=== PATIENT | male | born 1945 | race Caucasian/White ===

== ENCOUNTER 2017-11-13 19:43 | Inpatient (IN) | payer MEDICARE, BC ==
[~2017-11-13] VITALS: Ht 177.8 cm; Wt 88.0 kg
[2017-11-13] MEDS: ACETAMINOPHEN 325 MG TAB PO PRN ×2 (10:30→22:31)
[2017-11-13 19:30] VITALS: BP 165/101
[2017-11-13 19:40] VITALS: BP 165/101
[~2017-11-13 19:43] MED LIST: OXYBUTYNIN CHLOR5 MG PO; ULTRAM50 MG PO
[2017-11-13 21:25] VITALS: BP 165/101
[2017-11-13] MEDS ORDERED: GABAPENTIN400 MG PO (23:00)
[2017-11-14] VITALS (8 sets, daily range): BP systolic 126–160; BP diastolic 82–96
[2017-11-14] MEDS: ACETAMINOPHEN 325 MG TAB PO PRN (05:36)
[2017-11-14 10:17] LABS: BASOPHILS % 0.1 % (0.0-1.0); EOSINOPHILS % 0.3 % (0.0-6.0); HEMATOCRIT 44.4 % (38.2-49.6); LYMPHOCYTES # (AUTO) 1.8 (1.0-3.2); LYMPHOCYTES % 20.4 % (18.0-39.1); MEAN CORPUSCULAR HEMOGLOBIN 30.3 pg (28-32); MEAN CORPUSCULAR HGB CONC 33.8 g/dL (31-35); MEAN CORPUSCULAR VOLUME 89.7 fL (81-99); MONOCYTES # (AUTO) 0.7 (0.2-0.8); MONOCYTES % 8.3 % (4.4-11.3); NEUTROPHILS # (AUTO) 5.3 (2.1-6.9); NEUTROPHILS % 61.6 % (38.7-80.0); PLATELET COUNT 202 x10e3/uL (140-360); RED BLOOD COUNT 4.95 x10e6/uL (4.3-5.7); RED CELL DISTRIBUTION WIDTH 14.6 % (11.7-14.4)
[2017-11-14 10:37] LABS: ALANINE AMINOTRANSFERASE 52 IU/L (0-55); ALBUMIN 2.4 g/dL (3.5-5.0); ALBUMIN/GLOBULIN RATIO 0.7 (0.8-2.0); ALKALINE PHOSPHATASE 79 IU/L (40-150); ANION GAP 14.2 mmol/L (8-16); BLOOD UREA NITROGEN 24 mg/dL (7-26); BUN/CREATININE RATIO 25 (6-25); CALCIUM 9.7 mg/dL (8.4-10.2); CARBON DIOXIDE 24 mmol/L (22-29); CHLORIDE 105 mmol/L (98-107); CREATININE, SERUM 0.97 mg/dL (0.72-1.25); EST GLOMERULAR FILTRATION RATE > 60 ML/MIN (60-); GLUCOSE 93 mg/dL (74-118); POTASSIUM 4.2 mmol/L (3.5-5.1); SODIUM 139 mmol/L (136-145)
[2017-11-14] MEDS ORDERED: DEXTROSE 5%/0.9% SOD CHL 1,000 ML IV ONE (10:45)
--- NOTE | 2017-11-14 11:08 | History and Physical ---
CHIEF COMPLAINT: Cough and chest congestion, as well as body aches. HISTORY OF PRESENT ILLNESS: This is a 72-year-old white man who has no significant past medical history other than benign prostatic hypertrophy. The patient presents to [facility] emergency room with a 1-week history of worsening cough and chest congestion, as well as body aches. The patient was actually diagnosed with influenza at a local emergency room on Thursday, November 09, 2017. The patient states it is still having cough and chest congestion. He also complains of body aches, as well as headaches. The patient states that he completed 4 days oral Tamiflu at home prior to his admission. In the emergency room, the patient had a chest x-ray done on this admission, which revealed findings consistent with left lower lobe pneumonia. The patient was admitted for further evaluation and treatment. REVIEW OF SYSTEMS GENERAL: The patient had fever and chills last week, as well as diffuse myalgias. Denies any weight change. HEENT: Complains of headaches. Denies any visual changes. The patient also denies any neck stiffness. CARDIOVASCULAR/RESPIRATORY: Complains of chest congestion and productive cough over the last week, as well as slight shortness of breath. Denies any chest pain or tightness. GI: Complains of nausea, but no vomiting. Denies any diarrhea. : He does have BPH symptoms, but they are well controlled with medications. The patient denies any UTI symptoms. NEUROMUSCULAR: Complains of diffuse body aches. Denies any focal limb weakness or numbness. ALLERGIES: NO KNOWN DRUG ALLERGIES. MEDICATIONS 1. Vitamin B12 1000 mcg once daily. 2. Tamsulosin 0.8 mg at bedtime. PAST MEDICAL HISTORY 1. Alcoholic polyneuropathy. 2. History of chronic alcoholism (abstinence sine 2008). 3. Benign prostatic hypertrophy with lower urinary tract symptoms. 4. Lumbar disease. 5. Hyperlipidemia. 6. Stage 2 chronic kidney disease. 7. Rosacea. 8. Tobacco abuse. FAMILY HISTORY: Both parents said to be 95 years old, as well as one of his grandfathers. SOCIAL HISTORY: The man is and lives with his . 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 He is a heavy tobacco smoker, approximately 52-pack years. States he quit drinking in 2008. SURGICAL HISTORY 1. Colonoscopy in 2009 which was normal. 2. Bilateral rotator cuff surgery. 3. Left elbow surgery for ulnar release. 4. Multiple right hand surgeries. PHYSICAL EXAMINATION GENERAL: He is awake, alert and fully oriented. Very pleasant and cooperative with exam. VITALS: Height is 5 feet 10 inches, weight 208 pounds, calculated body mass index is 30. INTEGUMENT: Skin is warm and dry. No pallor of conjunctivae. HEENT: Anicteric sclerae with dry mucous membranes. NECK: Supple. CARDIOVASCULAR: Distant heart sounds. Tachycardic rate and regular rhythm. LUNGS: The patient has pronounced crackles and rhonchi in the bilateral lung smith. ABDOMEN: Benign. No organomegaly appreciated. EXTREMITIES: No edema or deformities. IMPRESSION 1. Influenza with respiratory manifestations. 2. Left lower lobe pneumonia. PLAN 1. Gentle intravenous fluids. 2. Will resume Tamiflu 75 mg by mouth twice a day. 3. Start intravenous antibiotics. 4. Follow outpatient blood cultures. 5. Follow renal function. 6. Resume home medications. 7. Will order chest x-ray today. I spent 40 minutes in the care of this patient. Job#: [id number] TRAE RODRIGUEZ
[2017-11-14] MEDS: CEFTRIAXONE SOD 1 GM VIAL IV SCH ×2 (11:39→23:32)
--- NOTE | 2017-11-14 11:41 | Diagnostic Imaging Report ---
PROCEDURE: A single AP view of the chest. COMPARISON: 04/06/17 INDICATIONS: PNEUMONIA, FLU FINDINGS: Lines/tubes: None. Lungs: Limited by body habitus and low lung volumes. Central peribronchovascular thickening/cuffing. Pleura: There is no pleural effusion or pneumothorax. Heart and mediastinum: The cardiomediastinal silhouette is enlarged on this AP view. Bones: No acute bony abnormality. Left humeral head anchor screw is in place. IMPRESSION: Central peribronchovascular thickening/cuffing. Underlying infiltrates cannot be excluded. Dictated by: Levy Guillory M.D. on 11/14/2017 at 11:50 Electronically approved by: Levy Guillory M.D. on 11/14/2017 at 11:50
[2017-11-14] MEDS: VANCOMYCIN 1GM/NS 250 ML 250 ML IV SCH ×2 (12:09→22:23)
[2017-11-14] MEDS: ALBUTEROL SULF 0.083% NEB SOLN 3 ML NEB NEB SCH ×2 (13:00→19:48)
[2017-11-14] MEDS ORDERED: GUAIFENESIN 600 MG TAB PO PRN (16:30)
[2017-11-14] MEDS: GUAIFENESIN 600 MG TAB PO SCH (18:46)
[2017-11-14] MEDS ORDERED: GUAIFENESIN 600 MG TAB PO SCH ×2 (19:00→21:00)
[2017-11-14] MEDS: BENZONATATE 100 MG CAP PO SCH (20:49)
[2017-11-14] MEDS ORDERED: FUROSEMIDE INJ 10 MG/ML 4 ML VIAL IV ONE (22:45)
[2017-11-14] MEDS: OSELTAMIVIR PHOSPHATE 75 MG CAP PO SCH (22:45)
[2017-11-15] VITALS: BP 143/85
[2017-11-15] MEDS: ALBUTEROL SULF 0.083% NEB SOLN 3 ML NEB NEB SCH ×2 (01:14→08:35)
[2017-11-15 04:00] VITALS: BP 151/99
[2017-11-15] MEDS: ACETAMINOPHEN 325 MG TAB PO PRN (05:03)
[2017-11-15 06:43] LABS: BASOPHILS # (AUTO) 0.1 (0.0-0.1); BASOPHILS % 0.5 % (0.0-1.0); EOSINOPHILS % 0.3 % (0.0-6.0); HEMATOCRIT 45.9 % (38.2-49.6); HEMOGLOBIN 15.5 g/dL (14.0-18.0); LYMPHOCYTES # (AUTO) 2.2 (1.0-3.2); LYMPHOCYTES % 20.5 % (18.0-39.1); MEAN CORPUSCULAR HEMOGLOBIN 30.3 pg (28-32); MEAN CORPUSCULAR HGB CONC 33.8 g/dL (31-35); MEAN CORPUSCULAR VOLUME 89.6 fL (81-99); NEUTROPHILS # (AUTO) 5.7 (2.1-6.9); NEUTROPHILS % 53.2 % (38.7-80.0); PLATELET COUNT 213 x10e3/uL (140-360); RED BLOOD COUNT 5.12 x10e6/uL (4.3-5.7); RED CELL DISTRIBUTION WIDTH 14.5 % (11.7-14.4)
[2017-11-15 07:11] LABS: ALANINE AMINOTRANSFERASE 57 IU/L (0-55); ALBUMIN 2.5 g/dL (3.5-5.0); ALBUMIN/GLOBULIN RATIO 0.6 (0.8-2.0); ALKALINE PHOSPHATASE 89 IU/L (40-150); BLOOD UREA NITROGEN 20 mg/dL (7-26); BUN/CREATININE RATIO 23 (6-25); CALCIUM 9.6 mg/dL (8.4-10.2); CARBON DIOXIDE 22 mmol/L (22-29); CHLORIDE 105 mmol/L (98-107); CREATININE, SERUM 0.86 mg/dL (0.72-1.25); EST GLOMERULAR FILTRATION RATE > 60 ML/MIN (60-); GLUCOSE 83 mg/dL (74-118); SODIUM 139 mmol/L (136-145)
[2017-11-15] MEDS ORDERED: LEVAQUIN750 MG (08:14)
[2017-11-15] MEDS ORDERED: AMBIEN10 MG PO (08:15)
[2017-11-15] MEDS ORDERED: ALBUTEROL1.25 MG/3 (08:16)
[2017-11-15 08:23] VITALS: BP 137/83
--- NOTE | 2017-11-15 08:27 | Discharge Summary ---
ADMIT DIAGNOSES: 1. Influenza with respiratory manifestations. 2. Left lower lobe pneumonia. DISCHARGE DIAGNOSES 1. Influenza with respiratory manifestation. 2. Left lower lobe pneumonia. 3. Hypertensive heart disease. 4. [id number] diastolic congestive heart failure, resolving. 5. Chronic bronchitis. HOSPITAL COURSE: This is a 72-year-old white male who was initially admitted to [facility] with a diagnosis of influenza with respiratory manifestation, namely left lower lobe pneumonia. During his hospitalization, patient improved clinically with intravenous vancomycin and ceftriaxone. Patient was also found to be in slight pulmonary edema during this hospitalization, but he improved dramatically with 2 doses of intravenous furosemide 80-mg strength. The patient's chest x-ray during this hospitalization did reveal an enlarged cardiac silhouette with central peribronchial vascular thickening/cuffing. The patient's hospitalization was unremarkable. CONDITION ON DISCHARGE: Stable. DISCHARGE MEDICATIONS 1. Levofloxacin 750 mg 1 p.o. daily for 7 days. 2. Ambien 10 mg 1 p.o. nightly for insomnia, 30 prescribed, 1 refill. 3. Nebulizer machine for albuterol. 4. Albuterol 1.25-mg strength nebulized 0.083% solution 4 times a day scheduled for the next 5 days and then every 4 hours as needed thereafter. 5. Tamsulosin 0.8 mg nightly. 6. Vitamin B12, 1000 mcg p.o. daily. FOLLOWUP INSTRUCTIONS: Patient instructed to follow up with his primary care physician, namely myself, Dr. Carlo Turcios, within the next 10 to 14 days. CARLO TURCIOS MD Job#: [id number] CF MTDD
[2017-11-15] MEDS ORDERED: FUROSEMIDE INJ 10 MG/ML 4 ML VIAL IV ONE (08:30)
[2017-11-15] MEDS: BENZONATATE 100 MG CAP PO SCH (08:42)
[2017-11-15] MEDS: GUAIFENESIN 600 MG TAB PO SCH (08:42)
[2017-11-15] MEDS: OSELTAMIVIR PHOSPHATE 75 MG CAP PO SCH (08:42)
[2017-11-15 09:08] LABS: BAND NEUTROPHILS % (MANUAL) 3 %; EOSINOPHILS % (MANUAL) 1 % (0-7); LYMPHOCYTES % (MANUAL) 22 % (19-48); MONOCYTES % (MANUAL) 10 % (3.4-9.0); NEUTROPHILS % (MANUAL) 53 % (40-74); PLATELET ESTIMATE ADEQUATE
[2017-11-15 09:09] LABS: ANISOCYTOSIS SLIGHT; PLATELET MORPHOLOGY COMMENT FEW LARGE; RBC MORPHOLOGY COMMENT NORMAL
[2017-11-15 09:13] VITALS: BP 137/83
== END 2017-11-15 09:30 | disposition home or self-care (01) | DRG 193 ==
LOC: IMCU 19:43 → OBSVTOIN 11-14 16:08
PROVIDERS: ADMIT Internal Medicine; ATTEND Internal Medicine
DX: J10.1 Influenza due to other identified influenza virus with other respiratory manifestations (principal); I50.33 Acute on chronic diastolic (congestive) heart failure; I13.0 Hypertensive heart and chronic kidney disease with heart failure and stage 1 through stage 4 chronic kidney disease, or unspecified chronic kidney disease; J18.9 Pneumonia, unspecified organism; N18.2 Chronic kidney disease, stage 2 (mild); J42 Unspecified chronic bronchitis; N40.1 Benign prostatic hyperplasia with lower urinary tract symptoms; G62.1 Alcoholic polyneuropathy; F10.21 Alcohol dependence, in remission; L71.9 Rosacea, unspecified; F17.200 Nicotine dependence, unspecified, uncomplicated; E78.5 Hyperlipidemia, unspecified
CPT/HCPCS: 36415; 71010; 80053; 83880; 85025; G0378; J0696; J1940; J3370; J7042

== ENCOUNTER 2021-08-22 17:49 | Inpatient (IN) | payer MEDICARE, BC ==
[~2021-08-22] VITALS: Ht 177.8 cm; Wt 88.5 kg
[2021-08-22] MEDS ORDERED: ONDANSETRON HCL INJ 2MG/ML 2ML 2 MG/ML VIAL IV STA (17:56)
[2021-08-22] MEDS ORDERED: Morphine 4mg Syringe 4 MG/ML INJ IV ONE ×2 (18:00→23:00)
[2021-08-22] MEDS ORDERED: SODIUM CHLORIDE 0.9% 1000ML 1,000 ML IV ONE (18:00)
[2021-08-22] MEDS ORDERED: DIATRIZOATE MEGL/DIATRIZOA SOD 30 ML BTL PO ONE (18:15)
[2021-08-22 18:21] LABS: BASOPHILS # (AUTO) 0.1 (0.0-0.1); BASOPHILS % 0.7 % (0.0-1.0); EOSINOPHILS % 0.2 % (0.0-6.0); HEMATOCRIT 63.2 % (38.2-49.6); HEMOGLOBIN 20.4 g/dL (14.0-18.0); LYMPHOCYTES % 24.2 % (18.0-39.1); MEAN CORPUSCULAR HEMOGLOBIN 30.1 pg (28-32); MEAN CORPUSCULAR HGB CONC 32.3 g/dL (31-35); MEAN CORPUSCULAR VOLUME 93.4 fL (81-99); MONOCYTES # (AUTO) 1.2 (0.2-0.8); MONOCYTES % 7.4 % (4.4-11.3); NEUTROPHILS # (AUTO) 10.7 (2.1-6.9); NEUTROPHILS % 65.2 % (38.7-80.0); PLATELET COUNT 284 x10e3/uL (140-360); RED BLOOD COUNT 6.77 x10e6/uL (4.3-5.7); RED CELL DISTRIBUTION WIDTH 14.7 % (11.7-14.4)
[2021-08-22] MEDS ORDERED: PIPERACILLIN/TAZOBACTAM 3.375 GM in SODIUM CHLORIDE 0.9% 50ML 50 ML IV STA (18:28)
[2021-08-22] MEDS ORDERED: PIPERACILLIN/TAZOBACTAM 3.375 GM VIAL ONE (18:32)
[2021-08-22 18:34] LABS: INR 0.94
[2021-08-22 18:35] LABS: PARTIAL THROMBOPLASTIN TIME 31.5 seconds (23.8-35.5)
[2021-08-22 18:43] LABS: ALBUMIN 4.6 g/dL (3.5-5.0); ALBUMIN/GLOBULIN RATIO 1.3 (0.8-2.0); ANION GAP 19.2 mmol/L (8-16); CALCIUM 10.6 mg/dL (8.4-10.2); CREATININE, SERUM 1.28 mg/dL (0.72-1.25); POTASSIUM 4.2 mmol/L (3.5-5.1)
[2021-08-22 18:44] LABS: AMYLASE 73 U/L (25-125); LIPASE 101 U/L (8-78)
[2021-08-22] MEDS ORDERED: HYDROCODONE/APAP 10MG-325MG TAB PO ONE (19:00)
[2021-08-22] MEDS ORDERED: IOPAMIDOL 370 MG/ML 200 ML INFUS..BTL INJ ONE (19:22)
[2021-08-22] MEDS ORDERED: SODIUM CHLORIDE 0.9% 50ML 50 ML ONE (19:22)
[2021-08-22] MEDS ORDERED: BENZOCAINE/TETRACAINE/BUTAMBEN AERO SPRAY 56 GM CAN TOP ONE (20:15)
[2021-08-22] MEDS: SODIUM CHLORIDE 0.9% 1000ML 1,000 ML IV SCH (21:20)
[2021-08-22] MEDS: Morphine 4mg Syringe 4 MG/ML INJ IV PRN (21:20)
[2021-08-22] MEDS: ONDANSETRON HCL INJ 2MG/ML 2ML 2 MG/ML VIAL IV PRN (21:20)
[2021-08-22 22:30] VITALS: BP 151/101
[2021-08-23] VITALS (8 sets, daily range): BP systolic 105–151; BP diastolic 76–101
[2021-08-23] MEDS: Morphine 4mg Syringe 4 MG/ML INJ IV PRN ×6 (01:47→22:45)
[2021-08-23] MEDS ORDERED: PIPERACILLIN/TAZOBACTAM 3.375 GM in SODIUM CHLORIDE 0.9% 50ML 50 ML IV SCH ×2 (02:00→03:00)
[2021-08-23] MEDS: SODIUM CHLORIDE 0.9% 1000ML 1,000 ML IV SCH ×3 (04:54→20:05)
[2021-08-23] MEDS: METRONIDAZOLE 500MG/NS 100ML 100 ML IV SCH ×4 (05:49→23:22)
[2021-08-23 06:25] LABS: BASOPHILS # (AUTO) 0.1 (0.0-0.1); BASOPHILS % 0.4 % (0.0-1.0); EOSINOPHILS % 0.1 % (0.0-6.0); HEMATOCRIT 59.7 % (38.2-49.6); HEMOGLOBIN 19.6 g/dL (14.0-18.0); LYMPHOCYTES # (AUTO) 1.4 (1.0-3.2); LYMPHOCYTES % 8.2 % (18.0-39.1); MEAN CORPUSCULAR HEMOGLOBIN 30.5 pg (28-32); MEAN CORPUSCULAR HGB CONC 32.8 g/dL (31-35); MEAN CORPUSCULAR VOLUME 92.8 fL (81-99); MONOCYTES # (AUTO) 1.3 (0.2-0.8); MONOCYTES % 7.9 % (4.4-11.3); NEUTROPHILS # (AUTO) 13.8 (2.1-6.9); NEUTROPHILS % 82.1 % (38.7-80.0); PLATELET COUNT 244 x10e3/uL (140-360); RED BLOOD COUNT 6.43 x10e6/uL (4.3-5.7); RED CELL DISTRIBUTION WIDTH 15.2 % (11.7-14.4)
[2021-08-23 07:01] LABS: ALBUMIN 3.7 g/dL (3.5-5.0); ALBUMIN/GLOBULIN RATIO 1.3 (0.8-2.0); ANION GAP 15.2 mmol/L (8-16); CALCIUM 9.2 mg/dL (8.4-10.2); CREATININE, SERUM 1.1 mg/dL (0.72-1.25); POTASSIUM 4.2 mmol/L (3.5-5.1)
[2021-08-23] MEDS: ONDANSETRON HCL INJ 2MG/ML 2ML 2 MG/ML VIAL IV PRN ×3 (10:25→18:30)
[2021-08-23] MEDS: PIPERACILLIN/TAZOBACTAM 3.375 GM in SODIUM CHLORIDE 0.9% 50ML 50 ML IV SCH ×2 (13:30→20:05)
[2021-08-23] MEDS ORDERED: LACTATED RINGER'S 1,000 ML INJ ONE (22:00)
[2021-08-23] MEDS ORDERED: LACTATED RINGER'S 1,000 ML ONE (22:13)
[2021-08-23] MEDS ORDERED: LACTATED RINGER'S 1,000 ML INJ SCH (23:15)
[2021-08-24] VITALS (8 sets, daily range): BP systolic 126–152; BP diastolic 76–94
[2021-08-24] MEDS: SODIUM CHLORIDE 0.9% 1000ML 1,000 ML IV SCH (04:27)
[2021-08-24] MEDS: PIPERACILLIN/TAZOBACTAM 3.375 GM in SODIUM CHLORIDE 0.9% 50ML 50 ML IV SCH ×3 (04:27→20:55)
[2021-08-24] MEDS: METRONIDAZOLE 500MG/NS 100ML 100 ML IV SCH ×3 (05:34→17:51)
[2021-08-24] MEDS: DEXTROSE 5%/0.45% SOD CHL 1,000 ML IV SCH ×2 (07:05→17:50)
[2021-08-24] MEDS ORDERED: DEXTROSE 50% SYRINGE 50 ML IV ONE (07:15)
[2021-08-24 07:33] LABS: BASOPHILS # (AUTO) 0.1 (0.0-0.1); BASOPHILS % 0.5 % (0.0-1.0); EOSINOPHILS # (AUTO) 0.1 (0.0-0.4); EOSINOPHILS % 0.5 % (0.0-6.0); HEMATOCRIT 54.4 % (38.2-49.6); HEMOGLOBIN 17.2 g/dL (14.0-18.0); LYMPHOCYTES # (AUTO) 2.1 (1.0-3.2); LYMPHOCYTES % 18.5 % (18.0-39.1); MEAN CORPUSCULAR HEMOGLOBIN 30.1 pg (28-32); MEAN CORPUSCULAR HGB CONC 31.6 g/dL (31-35); MEAN CORPUSCULAR VOLUME 95.1 fL (81-99); MONOCYTES # (AUTO) 0.9 (0.2-0.8); MONOCYTES % 7.8 % (4.4-11.3); NEUTROPHILS # (AUTO) 7.9 (2.1-6.9); NEUTROPHILS % 71.4 % (38.7-80.0); PLATELET COUNT 217 x10e3/uL (140-360); RED BLOOD COUNT 5.72 x10e6/uL (4.3-5.7); RED CELL DISTRIBUTION WIDTH 14.7 % (11.7-14.4)
[2021-08-24 09:25] LABS: ALBUMIN 3.3 g/dL (3.5-5.0); ALBUMIN/GLOBULIN RATIO 1.3 (0.8-2.0); ANION GAP 17.2 mmol/L (8-16); CREATININE, SERUM 1.04 mg/dL (0.72-1.25); POTASSIUM 4.2 mmol/L (3.5-5.1)
[2021-08-24] MEDS ORDERED: LACTATED RINGER'S 1,000 ML INJ STA (15:03)
[2021-08-24] MEDS ORDERED: LACTATED RINGER'S 1,000 ML INJ SCH (18:00)
[2021-08-25] VITALS: BP 130/80
[2021-08-25] MEDS: DEXTROSE 5%/0.45% SOD CHL 1,000 ML IV SCH (03:50)
[2021-08-25 04:00] VITALS: BP 115/79
[2021-08-25] MEDS: PIPERACILLIN/TAZOBACTAM 3.375 GM in SODIUM CHLORIDE 0.9% 50ML 50 ML IV SCH (04:58)
[2021-08-25] MEDS: METRONIDAZOLE 500MG/NS 100ML 100 ML IV SCH ×2 (05:46)
[2021-08-25 06:24] LABS: BASOPHILS % 0.4 % (0.0-1.0); EOSINOPHILS # (AUTO) 0.1 (0.0-0.4); EOSINOPHILS % 0.6 % (0.0-6.0); HEMOGLOBIN 15.3 g/dL (14.0-18.0); LYMPHOCYTES # (AUTO) 1.6 (1.0-3.2); LYMPHOCYTES % 16.3 % (18.0-39.1); MEAN CORPUSCULAR HEMOGLOBIN 30.5 pg (28-32); MEAN CORPUSCULAR HGB CONC 32.6 g/dL (31-35); MEAN CORPUSCULAR VOLUME 93.6 fL (81-99); MONOCYTES # (AUTO) 0.8 (0.2-0.8); MONOCYTES % 7.8 % (4.4-11.3); NEUTROPHILS # (AUTO) 7.3 (2.1-6.9); NEUTROPHILS % 73.4 % (38.7-80.0); PLATELET COUNT 161 x10e3/uL (140-360); RED BLOOD COUNT 5.02 x10e6/uL (4.3-5.7); RED CELL DISTRIBUTION WIDTH 14.2 % (11.7-14.4)
[2021-08-25 06:46] LABS: ALBUMIN 2.6 g/dL (3.5-5.0); ALBUMIN/GLOBULIN RATIO 1.4 (0.8-2.0); ANION GAP 12.6 mmol/L (8-16); CALCIUM 8.3 mg/dL (8.4-10.2); CREATININE, SERUM 0.85 mg/dL (0.72-1.25); POTASSIUM 3.6 mmol/L (3.5-5.1)
[2021-08-25 07:25] VITALS: BP 124/89
[2021-08-25 09:33] VITALS: BP 124/89
[2021-08-25 11:07] VITALS: BP 128/78
== END 2021-08-25 11:38 | disposition home or self-care (01) | DRG 389 ==
LOC: ER 17:54 → ERHOLD 20:17 → MED/SURG 22:44
PROVIDERS: ADMIT Internal Medicine; ATTEND Internal Medicine
PROC: 0DBK8ZZ Excision of Ascending Colon, Via Natural or Artificial Opening Endoscopic (ICD-10-PCS; principal; 2021-08-22)
PROC: 0DBL8ZZ Excision of Transverse Colon, Via Natural or Artificial Opening Endoscopic (ICD-10-PCS; 2021-08-22)
PROC: 0DBN8ZZ Excision of Sigmoid Colon, Via Natural or Artificial Opening Endoscopic (ICD-10-PCS; 2021-08-22)
DX: K91.30 Postprocedural intestinal obstruction, unspecified as to partial versus complete (principal); N17.9 Acute kidney failure, unspecified; Y84.8 Other medical procedures as the cause of abnormal reaction of the patient, or of later complication, without mention of misadventure at the time of the procedure; D75.1 Secondary polycythemia; J42 Unspecified chronic bronchitis; E86.1 Hypovolemia; G62.9 Polyneuropathy, unspecified; E78.5 Hyperlipidemia, unspecified; F10.21 Alcohol dependence, in remission; Z87.891 Personal history of nicotine dependence; I12.9 Hypertensive chronic kidney disease with stage 1 through stage 4 chronic kidney disease, or unspecified chronic kidney disease; N18.2 Chronic kidney disease, stage 2 (mild); D12.2 Benign neoplasm of ascending colon; D12.5 Benign neoplasm of sigmoid colon; D12.3 Benign neoplasm of transverse colon; K57.30 Diverticulosis of large intestine without perforation or abscess without bleeding
CPT/HCPCS: 36415; 45384; 45385; 74019; 74177; 80053; 82150; 82948; 83605; 83690; 83735; 85025; 85610; 85730; 87040; 88305; 93005; 99284; J1610; J2270; J2405; J2543; J7030; J7121; J7799; Q9967; U0002

== ENCOUNTER → 2021-08-22 | Day surgery (SDC) | payer MEDICARE, BC ==
[2021-08-20 10:18] LABS: BASOPHILS # (AUTO) 0.1 (0.0-0.1); BASOPHILS % 0.4 % (0.0-1.0); HEMATOCRIT 54.8 % (38.2-49.6); HEMOGLOBIN 17.7 g/dL (14.0-18.0); LYMPHOCYTES # (AUTO) 2.4 (1.0-3.2); MEAN CORPUSCULAR HEMOGLOBIN 30.1 pg (28-32); MEAN CORPUSCULAR HGB CONC 32.3 g/dL (31-35); MEAN CORPUSCULAR VOLUME 93.2 fL (81-99); MONOCYTES # (AUTO) 0.3 (0.2-0.8); MONOCYTES % 2.2 % (4.4-11.3); NEUTROPHILS # (AUTO) 10.4 (2.1-6.9); PLATELET COUNT 239 x10e3/uL (140-360); RED BLOOD COUNT 5.88 x10e6/uL (4.3-5.7)
[~2021-08-22] MED LIST changes: +ALBUTEROL1.25 MG/3 INH; +AMBIEN10 MG PO; +FLOMAX0.4 MG PO; +GABAPENTIN400 MG PO; +LEVAQUIN750 MG; +LYRICA100 MG PO
[2021-08-22 10:05] VITALS: BP 110/61
== END | disposition home or self-care (01) ==
LOC: OR 07:54
PROVIDERS: ATTEND Internal Medicine Gastroenterology
DX: D12.2 Benign neoplasm of ascending colon (principal); D12.5 Benign neoplasm of sigmoid colon; D12.3 Benign neoplasm of transverse colon; K57.30 Diverticulosis of large intestine without perforation or abscess without bleeding; K64.8 Other hemorrhoids; R19.5 Other fecal abnormalities; Z86.010 Personal history of colon polyps; K59.09 Other constipation; Z68.30 Body mass index [BMI] 30.0-30.9, adult; N40.0 Benign prostatic hyperplasia without lower urinary tract symptoms; Z01.810 Encounter for preprocedural cardiovascular examination; Z01.812 Encounter for preprocedural laboratory examination; Z20.822 Contact with and (suspected) exposure to COVID-19
CPT/HCPCS: 36415; 45384; 45385; 85025; 88305; 93005; U0002

== ENCOUNTER → 2022-12-09 | Outpatient (CLI) | payer MEDICARE, BC ==
[~2022-12-09] MED LIST changes: +IOPAMIDOL 370 MG/ML 100 ML INFUS..BTL INJ ONE; +METOPROLOL TARTRATE INJ 1 MG/ML VIAL ONE; +NITROGLYCERIN 0.4 MG SUBL ONE; +SODIUM CHLORIDE 0.9% 100 ML ONE
[2022-12-09 11:15] LABS: CREATININE, SERUM 1.26 mg/dL (0.72-1.25)
== END ==
LOC: CT 10:06
PROVIDERS: ATTEND Internal Medicine Cardiovascular Disease
DX: R06.02 Shortness of breath (principal); R07.9 Chest pain, unspecified
CPT/HCPCS: 36415; 75574; 82565; 84520; J7050; Q9967

== ENCOUNTER → 2022-12-23 | Day surgery (SDC) | payer MEDICARE, BC ==
[2022-12-20 12:11] LABS: BASOPHILS # (AUTO) 0.1 (0.0-0.1); BASOPHILS % 0.7 % (0.0-1.0); EOSINOPHILS # (AUTO) 0.1 (0.0-0.4); EOSINOPHILS % 1.9 % (0.0-6.0); HEMATOCRIT 53.8 % (38.2-49.6); HEMOGLOBIN 17.8 g/dL (14.0-18.0); LYMPHOCYTES # (AUTO) 2.1 (1.0-3.2); LYMPHOCYTES % 30.6 % (18.0-39.1); MEAN CORPUSCULAR HEMOGLOBIN 30.6 pg (28-32); MEAN CORPUSCULAR HGB CONC 33.1 g/dL (31-35); MEAN CORPUSCULAR VOLUME 92.4 fL (81-99); MONOCYTES # (AUTO) 0.6 (0.2-0.8); NEUTROPHILS # (AUTO) 3.9 (2.1-6.9); NEUTROPHILS % 56.8 % (38.7-80.0); PLATELET COUNT 195 x10e3/uL (140-360); RED BLOOD COUNT 5.82 x10e6/uL (4.3-5.7)
[2022-12-20 12:17] LABS: INR 0.9; PROTHROMBIN TIME 12.4 seconds (11.9-14.5)
[2022-12-20 12:27] LABS: ALBUMIN 3.9 g/dL (3.5-5.0); ALBUMIN/GLOBULIN RATIO 1.4 (0.8-2.0); ANION GAP 11.5 mmol/L (8-16); CALCIUM 9.6 mg/dL (8.4-10.2); CHOL/HDL RATIO 4.8 (3.9-4.7); CREATININE, SERUM 1.41 mg/dL (0.72-1.25); POTASSIUM 4.5 mmol/L (3.5-5.1)
[2022-12-23] VITALS (10 sets, daily range): BP systolic 106–132; BP diastolic 42–87
[~2022-12-23] VITALS: Ht 175.3 cm; Wt 95.3 kg
[~2022-12-23] MED LIST changes: +FENTANYL CITRATE/PF 100MCG/2 ML INJ ONE; +HEPARIN SOD (PORCINE) 1000 UNIT/ML 30ML ONE; +HEPARIN SOD/SOD CHLORIDE 2,000 ML ONE; +LIDOCAINE HCL 2% LOCAL 20 ML VIAL ONE; -METOPROLOL TARTRATE INJ 1 MG/ML VIAL ONE; +MIDAZOLAM HCL 2 MG/2 ML VIAL ONE; -NITROGLYCERIN 0.4 MG SUBL ONE; +NITROGLYCERIN/D5W 200 MCG/ML 250 ML ONE; -SODIUM CHLORIDE 0.9% 100 ML ONE; +SODIUM CHLORIDE 0.9% 1000ML 1,000 ML ONE; +VERAPAMIL HCL 2.5 MG/ML 2 ML VIAL ONE
== END | disposition home or self-care (01) ==
LOC: CATH LAB 05:56
PROVIDERS: ATTEND Internal Medicine Cardiovascular Disease
DX: I25.10 Atherosclerotic heart disease of native coronary artery without angina pectoris (principal); R94.39 Abnormal result of other cardiovascular function study; Z01.812 Encounter for preprocedural laboratory examination; Z79.899 Other long term (current) drug therapy; Z68.31 Body mass index [BMI] 31.0-31.9, adult
CPT/HCPCS: 36415; 80053; 80061; 85025; 85610; 93458; C1887; J1644; J2001; J2250; J3010; J7030; Q9967; 99152